=== PATIENT | female | born 1975 | race Caucasian/White ===

== ENCOUNTER → 2017-01-29 | Outpatient (CLI) | payer OTHER ==
--- NOTE | 2017-01-29 15:20 | REP ---
DIGITAL DIAGNOSTIC BILATERAL MAMMOGRAPHY WITH CAD AND FOCUSED BILATERAL SONOGRAPHY: HISTORY: Screening mammography from the [facility] dated April 26, 2016 was BIRADS category 0 because of multiple nodular densities. Comparison prior mammography is also reviewed from September 23, 2013. MAMMOGRAPHIC FINDINGS: Repeat CC and bilateral true MLO views were obtained without magnification. In addition magnified focal spot compression CC and true MLO views were obtained bilaterally. Today's images confirm the presence of a dominant well-circumscribed oval-shaped 27 mm nodular lesion at 12-o'clock position in the right breast. In addition there is a 15 mm nodular density in the upper outer quadrant. There is a stable subareolar nodule which is smaller as well. On the left there are two dominant nodular densities projecting in the inferolateral quadrant. These measure 19 and 15 mm in greatest diameter respectively. There are several other smaller nodules. SONOGRAPHIC FINDINGS: Bilateral breast sonography is performed. In the right breast scanning is performed from 9-o'clock position to the 12-o'clock position. There is a 2 mm cyst. There is a 15 x 16 x 7 mm cyst at 10-o'clock position. There is also a 16 x 15 x 6 mm cyst at 10-o'clock position. Several other smaller cysts are seen. No suspicious abnormality is observed in the right breast on ultrasound. In the left breast scanning is performed in 3-o'clock position to the 6-o'clock position encompassing the inferolateral quadrant. At 3-o'clock position there is a simple cyst measuring 16 x 15 x 6 mm. Another cyst is seen at 2-o'clock position measuring 6 mm in greatest diameter. At the 5-o'clock position, there is a 14 x 14 x 10 mm cyst and at 6-o'clock position there is a 22 mm cyst. These are felt to account for the mammographic opacities. No sonographically suspicious finding. IMPRESSION: BIRADS category 2 benign bilateral breast imaging. Bilateral simple cysts are observed both mammographically and sonographically. Annual screening mammography recommended. BI-RADS/ACR category 2 mammogram. Benign finding(s). Routine annual screening mammography (for women over age 40). This mammogram was interpreted with the aid of an FDA-approved computer-aided detection system. The patient states she/he had a clinical breast exam in May 2016. The patient letter M1. Signed by Jose Berry MD 01/29/2017 04:32 P
== END ==
LOC: M RAD 11:17
PROVIDERS: ATTEND Family Medicine
DX: R92.8 Other abnormal and inconclusive findings on diagnostic imaging of breast (principal)
CPT/HCPCS: 76642; G0204

== ENCOUNTER 2019-02-09 15:36 | Emergency (ER) | payer OTHER ==
[~2019-02-09] VITALS: Ht 165.1 cm; Wt 65.0 kg
[2019-02-09 15:37] VITALS: BP 123/75
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
== END 2019-02-09 18:09 | disposition home or self-care (01) ==
LOC: M ED 15:36
DX: S50.12XA Contusion of left forearm, initial encounter (principal); V49.40XA Driver injured in collision with unspecified motor vehicles in traffic accident, initial encounter; Y92.9 Unspecified place or not applicable

== ENCOUNTER → 2019-06-10 | Outpatient (REF) | payer OTHER, SELFPAY | LOC: M LAB REF 16:15 | PROVIDERS: ATTEND Physician Assistant | DX: J02.9 Acute pharyngitis, unspecified (principal) ==

== ENCOUNTER 2021-05-17 19:48 | Emergency (ER) | payer OTHER, SELFPAY ==
[~2021-05-17] VITALS: Ht 165.1 cm; Wt 77.0 kg
[2021-05-17] MEDS ORDERED: [UNRECOGNIZED DRUG - OTHER] PO (19:56)
[2021-05-18 04:04] LABS: BASO # 0.1 10^3/uL (0.0-0.2); BASO % 1.2 % (0.0-1.0); EOS # 0.2 10^3/uL (0.0-0.5); EOS % 2.9 % (0.0-3.0); HEMATOCRIT 40.1 % (36.0-47.0); HEMOGLOBIN 12.8 g/dl (12.0-15.5); LYMPH # 2.1 10^3/uL (1.5-5.0); LYMPH % 35.8 % (24.0-44.0); MEAN CORPUSCULAR HEMOGLOBIN 26.5 pg (27.0-33.0); MEAN CORPUSCULAR HGB CONC 31.9 g/dl (32.0-36.5); MONO # 0.6 10^3/uL (0.0-0.8); MONO % 9.7 % (2.0-8.0); NEUTROPHILS # 2.9 10^3/uL (1.5-8.5); NEUTROPHILS % 49.5 % (36.0-66.0); PLATELET COUNT, AUTOMATED 228 10^3/uL (150-450); RED BLOOD COUNT 4.83 10^6/uL (4.00-5.40); WHITE BLOOD COUNT 5.9 10^3/uL (4.0-10.0)
[2021-05-18 04:18] LABS: HCG, SERUM QUALITATIVE NEGATIVE (NEGATIVE)
[2021-05-18 04:33] LABS: ALBUMIN 3.9 GM/DL (3.2-5.2); ALT/SGPT 29 U/L (12-78); BILIRUBIN,DIRECT 0.1 MG/DL (0.0-0.2); BILIRUBIN,TOTAL 0.4 MG/DL (0.2-1.0); BLOOD UREA NITROGEN 15 MG/DL (7-18); CALCIUM LEVEL 9.5 MG/DL (8.5-10.1); CARBON DIOXIDE LEVEL 30 MEQ/L (21-32); CHLORIDE LEVEL 101 MEQ/L (98-107); CREATININE FOR GFR 0.86 MG/DL (0.55-1.30); GLOMERULAR FILTRATION RATE > 60.0 (>58); GLUCOSE, FASTING 97 MG/DL (70-100); LIPASE 136 U/L (73-393); POTASSIUM SERUM 4.4 MEQ/L (3.5-5.1); SODIUM LEVEL 139 MEQ/L (136-145); TOTAL PROTEIN 7.8 GM/DL (6.4-8.2)
--- NOTE | 2021-05-18 06:56 | REPVR ---
PROCEDURE INFORMATION: Exam: CT Abdomen And Pelvis Without Contrast Exam date and time: 05/18/2021 5:30 AM Age: 46 years old Clinical indication: Abdominal pain; Flank; Left; Additional info: Left flank pain TECHNIQUE: Imaging protocol: Computed tomography of the abdomen and pelvis without contrast. Radiation optimization: All CT scans at this facility use at least one of these dose optimization techniques: automated exposure control; mA and/or kV adjustment per patient size (includes targeted exams where dose is matched to clinical indication); or iterative reconstruction. COMPARISON: No relevant prior studies available. FINDINGS: Lungs: There is minimal atelectatic changes in the right middle lobe. Liver: There is a 1.2 cm hypodense lesion in the right hepatic lobe on axial image 32. Gallbladder and bile ducts: Normal. No calcified stones. No ductal dilation. Pancreas: Normal. No ductal dilation. Spleen: Normal. No splenomegaly. Adrenal glands: Normal. No mass. Kidneys and ureters: There is fullness in the right renal calices with no hydroureter. No right or left hyperdense renal or ureteral stones seen. Stomach and bowel: There is moderate to large diffuse colonic stool burden. Appendix: No evidence of appendicitis. Intraperitoneal space: Unremarkable. No free air. No significant fluid collection. Vasculature: Unremarkable. No abdominal aortic aneurysm. Lymph nodes: There is questionable thickening of some small bowel loops with mesenteric haziness and numerous shotty mesenteric lymph nodes. Urinary bladder: Unremarkable as visualized. Reproductive: Unremarkable as visualized. Bones/joints: Unremarkable. No acute fracture. Soft tissues: Unremarkable. IMPRESSION: 1. No CT evidence of right or left nephrolithiasis or left-sided hydronephrosis. Nonspecific fullness in the right renal calices could be on the basis of nonobstructive ectasia however correlation with clinical history and symptoms is needed. If clinically indicated CT urogram or nuclear medicine renal scan with diuretic may be considered for further evaluation. This can be also evaluated and confirmed by ultrasound. 2. Moderate to large diffuse colonic stool burden. 3. CT findings raising the possibility of enteritis. 4. 1.2 cm right hepatic lobe hypodense nodule, incompletely characterized. MRI with contrast is suggested for further evaluation on a nonemergent basis. Electronically signed by: Tyrone Starks On 05/18/2021 06:56:03 AM
[2021-05-18] MEDS ORDERED: SKEL800T97 PO (07:01)
[2021-05-18 07:08] VITALS: BP 110/69
--- NOTE | 2021-05-21 15:14 | ED PDOC ---
Post-Departure Follow-Up certified letter sent pertaining to radiology report Monae Poe MD May 21, 2021 15:14
== END 2021-05-18 08:00 | disposition home or self-care (01) ==
LOC: M ED 19:48
DX: M62.830 Muscle spasm of back (principal); D18.09 Hemangioma of other sites; K59.00 Constipation, unspecified